=== PATIENT | male | born 1990 | race Two or more races ===

== ENCOUNTER 2019-02-21 23:07 | Emergency (ER) | payer SELFPAY ==
[2019-02-21 23:12] VITALS: BMI 26.5
[2019-02-21 23:13] VITALS: O2SAT 98
[2019-02-21] MEDS ORDERED: Povidone Iodine Oint 10% Foilpak UD ONE (23:29)
[2019-02-22] MEDS ORDERED: Lidocaine/Epi 1% 1:100000 20 ML IJ STA (00:28)
[2019-02-22] MEDS ORDERED: Lidocaine 1% w Epi 1:100,000 Inj ONE (00:31)
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
[2019-02-22] MEDS ORDERED: Tdap Vaccine 0.5 ml Vial (10-64 yrs) IM ONE (06:04)
[2019-02-22 06:42] VITALS: BP 133/63; PULSE 71; RESP 18; TEMP 98.2
--- NOTE | 2019-02-22 10:31 | CT ---
Date of service: 02/22/2019 PROCEDURE: CT HEAD WITHOUT CONTRAST. HISTORY: Status post fall with head trauma, ?LOC COMPARISON: Comparison made with concurrent CT scan maxillofacial skeleton. TECHNIQUE: Axial computed tomography images were obtained through the head/brain without intravenous contrast. Radiation dose: Total exam DLP = 0.0 mGy-cm. This CT exam was performed using one or more of the following dose reduction techniques: Automated exposure control, adjustment of the mA and/or kV according to patient size, and/or use of iterative reconstruction technique. FINDINGS: HEMORRHAGE: No intracranial hemorrhage. BRAIN: No mass effect or edema. No atrophy or chronic microvascular ischemic changes. VENTRICLES: Unremarkable. No hydrocephalus. CALVARIUM: Calvarium intact. There is mild right supraorbital and frontal scalp contusional changes with few bubbles of air consistent with overlying laceration. PARANASAL SINUSES: Mild mucosal thickening seen within both maxillary sinuses left greater than right. There is also mild to moderate mucosal thickening within the ethmoid air complex extending superiorly into the inferior aspect right frontal sinus. MASTOID AIR CELLS: Unremarkable as visualized. No inflammatory changes. OTHER FINDINGS: None. IMPRESSION: No acute intracranial hemorrhage. Mild right supraorbital and frontal scalp contusion with associated overlying scalp laceration as detailed above. Mild mucosal thickening seen within the maxillary ethmoid and frontal sinuses.
--- NOTE | 2019-02-22 10:33 | CT ---
Date of service: 02/22/2019 PROCEDURE: CT MAXILLOFACIAL BONES WITHOUT CONTRAST HISTORY: Status post fall with facial trauma COMPARISON: None available. TECHNIQUE: Contiguous axial CT images of the maxillofacial bones were obtained. Coronal and sagittal reformats were generated. Radiation dose: Total exam DLP = 1797.4 mGy-cm. This CT exam was performed using one or more of the following dose reduction techniques: Automated exposure control, adjustment of the mA and/or kV according to patient size, and/or use of iterative reconstruction technique. FINDINGS: NASAL BONES: Unremarkable. ORBITS: There is a right-sided supraorbital and frontal scalp contusion which is associated with laceration evidenced by few bubbles of subcutaneous air. PARANASAL SINUSES/ MASTOIDS: Mild mucosal thickening seen within both maxillary sinuses left greater than right. There is also mild to moderate mucosal thickening within the ethmoid air complex extending superiorly into the inferior aspect right frontal sinus. MAXILLA: Unremarkable. MANDIBLE/ TEMPOROMANDIBULAR JOINTS: Unremarkable. SKULL BASE: Unremarkable. TEMPORAL BONES: Middle ears and mastoid grossly unremarkable. OTHER FINDINGS: None. IMPRESSION: No evidence of acute maxillofacial skeletal fractures. Mild right supraorbital and frontal scalp contusion associate with scalp laceration. Mild mucosal thickening seen within both maxillary sinuses left greater than right. There is also mild to moderate mucosal thickening within the ethmoid air complex extending superiorly into the inferior aspect right frontal sinus.
== END 2019-02-22 06:15 | disposition home or self-care (01) ==
LOC: H.ER 23:07
DX: S01.01XA Laceration without foreign body of scalp, initial encounter (principal); F10.129 Alcohol abuse with intoxication, unspecified; Z23 Encounter for immunization; W18.30XA Fall on same level, unspecified, initial encounter